=== PATIENT | male | born 1965 | race Caucasian/White ===

== ENCOUNTER 2019-08-18 15:34 | Outpatient (CLI) | payer SELFPAY | END 2019-08-18 15:35 | disposition EMS.NT | LOC: EMS 15:34 | PROVIDERS: ATTEND Surgery | DX: T14.90XA Injury, unspecified, initial encounter (principal); W13.2XXA Fall from, out of or through roof, initial encounter; Y93.H3 Activity, building and construction; Y92.61 Building [any] under construction as the place of occurrence of the external cause; Y99.0 Civilian activity done for income or pay; Z53.29 Procedure and treatment not carried out because of patient's decision for other reasons ==

== ENCOUNTER 2021-05-17 12:38 | Outpatient (CLI) | payer BC | END 2021-05-17 12:39 | disposition home or self-care (01) | LOC: LAB 12:38 | PROVIDERS: ATTEND Surgery | DX: Z01.812 Encounter for preprocedural laboratory examination (principal); Z12.11 Encounter for screening for malignant neoplasm of colon; F12.10 Cannabis abuse, uncomplicated; Z20.822 Contact with and (suspected) exposure to COVID-19 ==

== ENCOUNTER 2021-05-20 08:21 | Day surgery (SDC) | payer BC ==
[2021-05-20] MEDS ORDERED: LACTATED RINGERS 1,000 ML IV ONE ×2 (08:50→12:10)
--- NOTE | 2021-05-20 09:00 | ANESTHESIA ---
Pre-Anesthesia VS, & Labs - Diagnosis screening - Procedure colonoscopy Vital Signs: Temp Pulse Resp BP Pulse Ox 36.7 C 103 H 19 141/107 H 97 05/20/21 08:43 05/20/21 08:43 05/20/21 08:43 05/20/21 08:43 05/20/21 08:43 Height: 6 ft 2 in Weight (kg): 85 kg Body Mass Index: 24.0 BMI Classification: Healthy weight - NPO >8 hours - Lab Results Lab results reviewed: Yes Home Medications and Allergies Home Medications: Ambulatory Orders metFORMIN [Glucophage] 1 tab PO DAILY 05/17/21 metFORMIN [Glucophage] 1 tab PO DAILY 05/17/21 Allergies/Adverse Reactions: Allergies Allergy/AdvReac Type Severity Reaction Status Date / Time No Known Drug Allergies Allergy Verified 05/17/21 13:04 Anes History & Medical History - Anesthetic History Anesthesia Complications: reports: No previous complications Family history of Anesthesia Complications: Denies Family history of Malignant Hyperthermia: Denies - Medical History Cardiovascular: reports: None Pulmonary: reports: None Gastrointestinal: reports: None Urinary: reports: None Musculoskeletal: reports: None Endocrine/Autoimmune: reports: Type 2 diabetes Skin: reports: None - Surgical History Eyes Ears Nose Throat (EENT): reports: Detached retina repair Orthopedic: reports: Arthroscopic surgery, Other Exam General: Alert, Oriented x3, Cooperative, No acute distress Dental: WNL Mouth Openin Fingerbreadth Neck Mobility: Normal Plan Anesthesia Type: General, Total IV Consent for Procedure(s) Verified and Reviewed: Yes Code Status: Attempt Resuscitation ASA classification: 2-Mild systemic disease Is this case an emergency?: No
[2021-05-20] MEDS ORDERED: PROPOFOL 500 MG/50 ML 500 MG/50 ML VIAL ONE (10:30)
[2021-05-20] MEDS ORDERED: PROPOFOL 200 MG/20 ML VIAL IVP ONE ×2 (10:30→12:03)
[2021-05-20] MEDS ORDERED: MIDAZOLAM 2 MG/2 ML VIAL ONE (10:45)
--- NOTE | 2021-05-20 12:23 | ANESTHESIA POST OP EVALUATION ---
Anesthesia Post Eval - Post Anesthesia Eval Vitals: Last Vital Signs Temp 36.7 C 05/20/21 08:43 Pulse 102 H 05/20/21 12:10 Resp 19 05/20/21 12:10 BP 125/105 H 05/20/21 12:10 Pulse Ox 100 05/20/21 12:10 CV Function Including HR & BP: Stable Pain Control: Satisfactory Nausea & Vomiting: Negative Mental Status: Baseline Respiratory Status: Airway Patent Hydration Status: Satisfactory Anesthesia Complications: None
[2021-05-20 12:27] VITALS: BP 137/97
== END 2021-05-20 08:22 | disposition home or self-care (01) ==
LOC: SDS 08:21
PROVIDERS: ATTEND Surgery
PROC: 0DBK8ZZ Excision of Ascending Colon, Via Natural or Artificial Opening Endoscopic (ICD-10-PCS; principal; 2021-05-20 09:30)
DX: Z12.11 Encounter for screening for malignant neoplasm of colon (principal); D12.2 Benign neoplasm of ascending colon; K64.8 Other hemorrhoids; K57.30 Diverticulosis of large intestine without perforation or abscess without bleeding; K64.4 Residual hemorrhoidal skin tags; Z80.0 Family history of malignant neoplasm of digestive organs
CPT/HCPCS: 45380; J7120

== ENCOUNTER 2023-08-02 15:28 | Emergency (ER) | payer BC, OTHER ==
[2023-08-02 16:36] LABS: BASOPHILS % (AUTO) 0.3 %; EOSINOPHILS # (AUTO) 0.2 10^3/uL (0.0-0.7); EOSINOPHILS % (AUTO) 1.7 %; HCT - HEMATOCRIT 45.2 % (42.0-52.0); LYMPHOCYTES # (AUTO) 1.4 10^3/uL (1.5-3.5); LYMPHOCYTES % (AUTO) 15.1 %; MEAN CORPUSCULAR HEMOGLOBIN 30.2 pg (27.0-31.0); MEAN CORPUSCULAR HGB CONC 33.2 g/dL (32.0-36.0); MEAN CORPUSCULAR VOLUME 91.1 fL (80.0-94.0); MEAN PLATELET VOLUME 10.1 fL (7.4-11.4); MONOCYTES # (AUTO) 0.8 10^3/uL (0.0-1.0); MONOCYTES % (AUTO) 8.1 %; NEUTROPHILS # (AUTO) 7.1 10^3/uL (1.5-6.6); NEUTROPHILS % (AUTO) 74.6 %; PLT - PLATELET COUNT 259 10^3/uL (130-450); RED BLOOD COUNT 4.96 10^6/uL (4.70-6.10); RED CELL DISTRIBUTION WIDTH 12.6 % (12.0-15.0); WHITE BLOOD COUNT 9.5 x10^3/uL (4.8-10.8)
[2023-08-02] MEDS: DROPERIDOL 5 MG/2 ML VIAL IVP STA (16:37)
[2023-08-02] MEDS: diphenhydrAMINE INJ 50 MG/ML VIAL IVP STA (16:37)
--- NOTE | 2023-08-02 16:42 | ED Physician Documentation ---
History of Present Illness - Stated complaint Stated Complaint: L EAR PX/THROAT NUMB - Chief complaint Chief Complaint: Heent - History obtained from History obtained from: Patient, Family - History of Present Illness Timing: How many weeks ago (1) Pain level max: 8 Pain level now: 8 - Additonal information Additional information: 57-year-old male presents to the emergency department with several complaints. He states that about 1 week ago he had a right ear pain and developed a feeling of numbness and swelling to the right side of his tongue. He states that it gradually moved to the middle of the tongue over the past 1 week, now the right side feels normal but the left side feels swollen and numb. He states that the pain has moved from the right ear to the left ear. Occasionally down into the neck. He states that he also has a headache. He cannot describe where the headache is he says "in my brain". No fevers. No falls. No trauma. No rhinorrhea, cough, congestion. No abdominal pain, nausea, vomiting. No dental pain. No vision changes. He is blind in the left eye. No facial droop or focal neurological deficits. No numbness or tingling in the extremities. No neck or back pain. He states that there is pain with swallowing. He states that he is supposed to be on metformin at home but stopped taking this about a week ago. Review of Systems Constitutional: denies: Fever, Chills Ears: denies: Ear pain Cardiac: denies: Chest pain / pressure, Palpitations, Calf pain Respiratory: denies: Cough GI: denies: Vomiting, Diarrhea : denies: Dysuria, Frequency, Hesitancy Skin: denies: Rash Musculoskeletal: denies: Neck pain, Back pain Neurologic: reports: Headache (Gradual in onset, cannot specify where the pain is.). denies: Head injury, LOC PD PAST MEDICAL HISTORY - Past Medical History Past Medical History: Yes Cardiovascular: None Respiratory: None Neuro: None Endocrine/Autoimmune: Type 2 diabetes GI: None : None HEENT: Other Psych: None Musculoskeletal: None Derm: None - Past Surgical History Past Surgical History: Yes Ortho: Arthroscopic surgery, Other HEENT: Detached retina repair - Present Medications Home Medications: Ambulatory Orders Medication Instructions Recorded Confirmed metFORMIN [Glucophage] 500 mg PO DAILY 05/17/21 08/02/23 HYDROcod/ACETAM 5/325 [[place] 5/325] 1 - 2 ea PO Q6H PRN #14 tablet 08/02/23 - Allergies Allergies/Adverse Reactions: Allergies Allergy/AdvReac Type Severity Reaction Status Date / Time No Known Drug Allergies Allergy Verified 08/02/23 15:30 - Social History Does the pt smoke?: No Smoking Status: Former smoker Does the pt drink ETOH?: Yes Does the pt have substance abuse?: Yes Substance Use and Type: Marijuana - Immunizations Immunizations are current?: No Immunizations: Other immun not current PD ED PE NORMAL - Vitals Vital signs reviewed: Yes - General General: Alert and oriented X 3, No acute distress, Well developed/nourished - HEENT HEENT: Atraumatic, PERRL, EOMI, Ears normal, Moist mucous membranes, Pharynx b enign, Other (Normal intraoral exam. Normal tongue exam. Normal phonation. No trismus. Normal tonsils. 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, No motor deficit, No sensory deficit, Normal speech Eye Opening: Spontaneous Motor: Obeys Commands Verbal: Oriented GCS Score: 15 - Psych Psych: Normal mood, Normal affect Results - Vitals Vitals: Vital Signs - 24 hr 08/02/23 08/02/23 15:30 17:40 Temperature 36.4 C L 37.2 C Heart Rate 96 71 Respiratory 18 20 Rate Blood Pressure 155/104 H 149/105 H O2 Saturation 100 96 Oxygen O2 Source Room air - Labs Labs: Laboratory Tests 08/02/23 08/02/23 08/02/23 16:20 16:20 16:30 WBC 9.5 RBC 4.96 Hgb 15.0 Hct 45.2 MCV 91.1 MCH 30.2 MCHC 33.2 RDW 12.6 Plt Count 259 MPV 10.1 Neut # (Auto) 7.1 H Lymph # (Auto) 1.4 L [place] # (Auto) 0.8 Eos # (Auto) 0.2 Baso # (Auto) 0.0 Absolute Nucleated RBC 0.00 Nucleated RBC % 0.0 Sodium Potassium Chloride Carbon Dioxide Anion Gap BUN Creatinine Estimated GFR (MDRD) Glucose Calcium Total Bilirubin AST ALT Alkaline Phosphatase Total Protein Albumin Globulin Albumin/Globulin Ratio Nasal Adenovirus (PCR) NOT DETECTED Nasal B. parapertussis DNA (PCR) NOT DETECTED Nasal Coronavir 229E PCR NOT DETECTED Nasal Coronavir HKU1 PCR NOT DETECTED Nasal Coronavir NL63 PCR NOT DETECTED Nasal Coronavir OC43 PCR NOT DETECTED Nasal Enterovir/Rhinovir PCR NOT DETECTED Nasal Influenza B PCR NOT DETECTED Nasal Influenza A PCR NOT DETECTED Nasal Parainfluen 1 PCR NOT DETECTED Nasal Parainfluen 2 PCR NOT DETECTED Nasal Parainfluen 3 PCR NOT DETECTED Nasal Parainfluen 4 PCR NOT DETECTED Nasal RSV (PCR) NOT DETECTED Nasal B.pertussis DNA PCR NOT DETECTED Nasal C.pneumoniae (PCR) NOT DETECTED Nick Human Metapneumo PCR NOT DETECTED Nasal M.pneumoniae (PCR) NOT DETECTED Nasal SARS-CoV-2 (PCR) NOT DETECTED Group A Strep Rapid Negative 08/02/23 16:30 WBC RBC Hgb Hct MCV MCH MCHC RDW Plt Count MPV Neut # (Auto) Lymph # (Auto) [place] # (Auto) Eos # (Auto) Baso # (Auto) Absolute Nucleated RBC Nucleated RBC % Sodium 133 L Potassium 4.5 Chloride 100 L Carbon Dioxide 26 Anion Gap 7.0 BUN 12 Creatinine 0.7 Estimated GFR (MDRD) 117 Glucose 315 H Calcium 9.6 Total Bilirubin 0.5 AST 9 L ALT 15 Alkaline Phosphatase 61 Total Protein 7.3 Albumin 4.0 Globulin 3.3 Albumin/Globulin Ratio 1.2 Nasal Adenovirus (PCR) Nasal B. parapertussis DNA (PCR) Nasal Coronavir 229E PCR Nasal Coronavir HKU1 PCR Nasal Coronavir NL63 PCR Nasal Coronavir OC43 PCR Nasal Enterovir/Rhinovir PCR Nasal Influenza B PCR Nasal Influenza A PCR Nasal Parainfluen 1 PCR Nasal Parainfluen 2 PCR Nasal Parainfluen 3 PCR Nasal Parainfluen 4 PCR Nasal RSV (PCR) Nasal B.pertussis DNA PCR Nasal C.pneumoniae (PCR) Nick Human Metapneumo PCR Nasal M.pneumoniae (PCR) Nasal SARS-CoV-2 (PCR) Group A Strep Rapid - Rads (name of study) Head CT Relevant Findings:: Final report received, See rad report Soft tissue neck CT Relevant Findings:: Final report received, See rad report PD Medical Decision Making - ED course Complexity details: reviewed results, re-evaluated patient, considered differential, d/w patient, d/w family Reviewed Lab Results: Patient is hyperglycemic, but he recently stopped his metformin, recommend restarting this in [address] scan ED course: Unclear etiology of the patient's symptoms. No acute findings on head CT for his new onset recent headaches, no acute findings on CT soft tissue neck, no retropharyngeal or parapharyngeal abscesses. No oropharyngeal swelling visible on CT. Pain well-controlled here. Given a dose of dexamethasone, IV morphine, droperidol. Tolerating p.o. without difficulty. No indication of dental abscess. Normal phonation. No trismus. No indication for antibiotics. Normal white blood cell count. No fevers. We will trial on pain medication and see how he progresses over the next few days. Recommend close follow-up with his PCP. Patient counseled regarding signs and symptoms for which I believe and urgent re-evaluation would be necessary. Patient with good understanding of and agreement to plan and is comfortable going home at this time This document was made in part using voice recognition software. While efforts are made to proofread this document, sound alike and grammatical errors may occ ur. Departure - Departure Disposition: 01 Home, Self Care Clinical Impression: Throat pain Headache Qualifiers: Headache type: unspecified Headache chronicity pattern: acute headache Intractability: not intractable Qualified Code(s): R51.9 - Headache, unspecified Condition: Good Instructions: ED Cephalgia Unspecified Follow-Up: your,doctor in 3 days [Other] Prescriptions: HYDROcod/ACETAM 5/325 [[place] 5/325] 1 - 2 ea PO Q6H PRN #14 tablet PRN Reason: Pain Comments: The cause of your symptoms is unclear today. Your strep test is negative. Your respiratory viral panel is negative. Your head CT is negative. Your neck CT does not show any acute abnormalities but you do have a small thyroid nodule which should be followed up by your doctor. Your laboratory testing is normal as well other than your elevated blood sugar. Would recommend starting your metformin again in 48 hours. Your prescriptions were sent to [facility] in [place]. Please follow-up with your doctor for further care and return if you worsen. I am prescribing a short course of narcotic pain medication for you. These are potentially dangerous and addictive medications that should be used carefully. These medications may constipate you. Take an ggub-wqk-vqykoxt stool softener (docusate) twice daily with plenty of water while taking these medications. If you go 24 hours without a bowel movement, take [id number] miralax, per package instructions. Do not drink or drive while taking these medications. If you received narcotic or sedating medications while in the emergency department, do not drive for 24 hours. Store this medication in a safe, secure place and out of reach of children. It is a violation of federal law to give or sell this medication to another person or to use in a manner other than prescribed. The ED will not refill narcotic prescriptions, including prescriptions lost or stolen. To dispose of unwanted medications: 1. [facility] at [address] in [place] has a medication drop box. They accept prescription medications (in pill form) Thursday through Thursday 9:00 a.m. to 5:00 p.m. 2. The [facility] [employer] accepts prescription medications (in pill form only) for disposal year round. Call for more information. 3. Contact the [facility] for the next [facility] sponsored prescription drug collection event. , [phone], or [phone]; Forms: PCP List Discharge Date/Time: 08/02/23 18:18
[2023-08-02 16:48] LABS: ALBUMIN/GLOBULIN RATIO 1.2 (1.0-2.2); BILIRUBIN,TOTAL 0.5 mg/dL (0.2-1.0); CALCIUM 9.6 mg/dL (8.5-10.3); CREATININE 0.7 mg/dL (0.6-1.3); POTASSIUM 4.5 mmol/L (3.5-4.5); TOTAL PROTEIN 7.3 g/dL (6.4-8.9)
[2023-08-02 16:49] LABS: RAPID STREP SCREEN Negative (Negative)
[2023-08-02] MEDS ORDERED: iohexoL-300 100 ML VIAL ONE (16:54)
[2023-08-02] MEDS: iohexoL-300 100 ML VIAL IVP ONE (17:17)
[2023-08-02] MEDS: MORPHINE 2 MG/ML CARPUJECT IVP STA (17:22)
[2023-08-02 17:34] LABS: B. PARAPERTUSSIS- RESP PCR PAN NOT DETECTED; B. PERTUSSIS- RESP PCR PANEL NOT DETECTED; C. PNEUMONIAE- RESP PCR PANEL NOT DETECTED; CORONAVIRUS 229E-RESP PCR NOT DETECTED; CORONAVIRUS HKU1-RESP PCR NOT DETECTED; CORONAVIRUS NL63-RESP PCR NOT DETECTED; CORONAVIRUS OC43-RESP PCR NOT DETECTED; HUMAN METAPNEUMOVIRUS NOT DETECTED; INFLUENZA A- RESP PCR PANEL NOT DETECTED; INFLUENZA B - RESP PCR PANEL NOT DETECTED; M. PNEUMONIAE- RESP PCR PANEL NOT DETECTED; PARAINFLUENZA VIRUS 1 NOT DETECTED; PARAINFLUENZA VIRUS 2 NOT DETECTED; PARAINFLUENZA VIRUS 3 NOT DETECTED; PARAINFLUENZA VIRUS 4 NOT DETECTED; RHINOVIRUS/ENTEROVIRUS NOT DETECTED; RSV- RESP PCR PANEL NOT DETECTED; SARS-CoV-2 -RESP PCR PANEL NOT DETECTED
--- NOTE | 2023-08-02 17:38 | CT Report ---
PROCEDURE: Soft Tissue Neck W INDICATIONS: neck pain, throat swelling CONTRAST: 100ml omni 300 TECHNIQUE: After the administration of intravenous contrast, 3.0 mm axial sections acquired from the sella to th e aortic arch. Additional oblique axial 3.0 mm sections acquired through the pharynx. 3 mm thick co hair reformats were generated. For radiation dose reduction, the following was used: automated exp osure control, adjustment of mA and/or kV according to patient size. COMPARISON: None. FINDINGS: Image quality: Excellent. Lymph nodes: No enlarged lymph nodes seen throughout the neck. Vessels: Visualized vasculature appears patent. Neck spaces: The oropharynx, nasopharynx, and pharynx demonstrate no mucosal lesions. The glottis is closed limiting evaluation the vocal cords and false vocal cords. The puriform sinuses, epiglottis, vallecula, and tongue base all appear normal. Extramucosal spaces appear unremarkable. Glands: The parotid and submandibular glands appear normal. Right thyroid 1.7 cm nodule. Miscellaneous: Visualized brain and orbits appear normal. Lung apices appear clear. Superficial so ft tissues appear normal. Bones: No suspicious bony lesions. Visualized sinuses and mastoids appear unremarkable. IMPRESSION: No retropharyngeal abscess, prevertebral soft tissue edema, lymphadenopathy, or mass identified. Right thyroid nodule consider routine thyroid ultrasound. Reviewed by: Jani Beth MD on 08/02/2023 4:37 PM AKIVETH Approved by: Jani Beth MD on 08/02/2023 4:37 PM AKIVETH Station ID: [id number]
--- NOTE | 2023-08-02 17:40 | CT Report ---
PROCEDURE: Head WO INDICATIONS: headache TECHNIQUE: Noncontrast 4.5 mm thick angled axial sections acquired from the foramen magnum to the vertex. For r adiation dose reduction, the following was used: automated exposure control, adjustment of mA and/or kV according to patient size. COMPARISON: None. FINDINGS: Image quality: Excellent. CSF spaces: Basal cisterns are patent. No extra-axial fluid collections. Ventricles are normal in size and shape. Brain: No midline shift. No intracranial masses or hemorrhage. Simons-white matter interface is norm al. Skull and face: Calvarium and visualized facial bones are intact, without suspicious lesions. Sinuses: Visualized sinuses and mastoids are clear. IMPRESSION: No acute intracranial pathology. Reviewed by: Jani Beth MD on 08/02/2023 4:39 PM JEZ Approved by: Jani Beth MD on 08/02/2023 4:39 PM AKIVETH Station ID: [id number]
[2023-08-02 17:43] VITALS: BP 149/105; O2SAT 96
[2023-08-02] MEDS: HYDROcod/ACETAM 5/325 MG TABLET PO STA (18:08)
[2023-08-02] MEDS: DEXAMETHASONE 10 MG/ML VIAL PO STA (18:09)
[2023-08-02] MEDS: CHERRY SYRUP 10 ML UDC PO ONE (18:09)
== END 2023-08-02 18:18 | disposition home or self-care (01) ==
LOC: ED 15:28
DX: H92.02 Otalgia, left ear (principal); R07.0 Pain in throat; R51.9 Headache, unspecified; E11.9 Type 2 diabetes mellitus without complications; Z79.84 Long term (current) use of oral hypoglycemic drugs; Z87.891 Personal history of nicotine dependence; Z11.52 Encounter for screening for COVID-19
CPT/HCPCS: 36415; 70450; 70491; 80053; 85025; 87070; 87430; 87633; 96374; 96375; 99284; A9270; J1200; Q9967

== ENCOUNTER 2023-08-03 16:37 | Emergency (ER) | payer BC, OTHER ==
[2023-08-03] MEDS: PROPOFOL 200 MG/20 ML VIAL IVP STA (17:29)
--- NOTE | 2023-08-03 17:47 | ED Physician Documentation ---
History of Present Illness - Stated complaint Stated Complaint: ABCESS TONGUE - Chief complaint Chief Complaint: Heent - History obtained from History obtained from: Patient, Family - Additonal information Additional information: The patient comes to the emergency department for chief complaint of tongue abscess. He was seen here yesterday for tongue pain and CT scan with contrast was performed and initially read as negative. The patient was feeling worse today and ended up going to the walk-in clinic, where he saw Nurse practitioner Eduardo, who initiated a second look at the CT by radiology and the overread stated that the patient actually had an abscess. The patient was sent back to the emergency department. Dr. Sams of oral surgery recommended a needle aspiration of the abscess and stated he would follow the patient up. The patient denies any swelling or closing of his throat. He is able to swallow his secretions. No fevers or chills. He denies any drainage from the abscess. No other complaints at this time. PD PAST MEDICAL HISTORY - Past Medical History Cardiovascular: None Respiratory: None Neuro: None Endocrine/Autoimmune: Type 2 diabetes GI: None : None HEENT: Other Psych: None Musculoskeletal: None Derm: None - Past Surgical History Past Surgical History: Yes Ortho: Arthroscopic surgery, Other HEENT: Detached retina repair - Present Medications Home Medications: Ambulatory Orders Medication Instructions Recorded Confirmed metFORMIN [Glucophage] 500 mg PO DAILY 05/17/21 08/02/23 HYDROcod/ACETAM 5/325 [[place] 5/325] 1 - 2 ea PO Q6H PRN #14 tablet 08/02/23 - Allergies Allergies/Adverse Reactions: Allergies Allergy/AdvReac Type Severity Reaction Status Date / Time No Known Drug Allergies Allergy Verified 08/03/23 16:40 - Social History Does the pt smoke?: No Smoking Status: Never smoker Does the pt drink ETOH?: Yes Does the pt have substance abuse?: Yes - Immunizations Immunizations are current?: No Immunizations: Other immun not current PD ED PE NORMAL - Vitals Vital signs reviewed: Yes - General General: Alert and oriented X 3, No acute distress, Well developed/nourished, Other (Patient appears mildly uncomfortable otherwise no apparent distress.) - HEENT HEENT: Atraumatic, PERRL, EOMI, Moist mucous membranes, Other (Tenderness and firmness of Failure to distal tongue extending to within approximately a centimeter of the tip. Mild fluctuance. No drainage. Area is approximately 2 x 2 cm. No swelling of floor of mouth. No pharyngeal asymmetry or edema) - Cardiac Cardiac: RRR, No murmur - Respiratory Respiratory: Clear bilaterally - Abdomen Abdomen: Normal bowel sounds, Soft, Non tender, Non distended - Derm Derm: Warm and dry - Extremities Extremities: No deformity - Neuro Neuro: Alert and oriented X 3 - Psych Psych: Normal mood, Normal affect Results - Vitals Vitals: Vital Signs - 24 hr 08/03/23 08/03/23 16:40 16:42 Temperature 36.8 C Heart Rate 90 80 Respiratory 16 16 Rate Blood Pressure 150/98 H O2 Saturation 99 Oxygen O2 Source Room air Procedures - Abscess I&D (location) Other Preparation: Other (Confirmed with CT) Incision: Needle aspiration, Purulent drainage (Slightly over 1.5 cc.), Culture obtained Other: Pt tolerated well (Minimal bleeding immediately after needle aspiration, quickly stopped.), Other (Patient is already on antibiotics) - Procedural sedation Sedation prep: Informed consent, Time out completed, ASA 2 - mild disease (Diabetes) Sedation Medications: propofol (100mg initially, then another 50 mg for optimal sedation, for a total of 150mg administered.) Mallampati classification: I Patient status during sedation: Unresponsive, Vitals remained stable, Maintained airway, Recovered uneventfully Sedation recovery: Recovered uneventfully, Back to baseline Time in sedation (Minutes): 10 PD Medical Decision Making - ED course Complexity details: reviewed old records, reviewed results, re-evaluated patient, considered differential, d/w patient, d/w family ED course: The patient had an uneventful sedation and abscess cavity was very easily accessed with 18-gauge needle and purulent drainage aspirated as above. The patient awakened and was cheerful and conversant, reporting feeling much better than before the aspiration. The patient had received a dose of Rocephin in the clinic and the family did have the patient's Augmentin. I advised the patient to take a dose upon arriving home. I have advised him regarding post sedation precautions including that he should not drive or operate heavy equipment for at least 12 hours. He is advised to just get rest immediately upon arriving home. We have discussed the need for follow-up with Dr. Gillis to be sure that his abscess is completely resolving, we have discussed the importance of taking all doses of antibiotics, as directed. We discussed the usual indications for return. Departure - Departure Disposition: 01 Home, Self Care Clinical Impression: Abscess, tongue Condition: Stable Instructions: ED Abscess IandD Follow-Up: Neymar Gillis DDS [Provider Admit Priv/Credential] - Comments: Your CT scan from yesterday was looked at again and it turns out he actually did have an abscess in your tongue. We were able to drain most if not all of the pus out of there during your procedure today, based on the appearance and size of the abscess on CT. This should allow the antibiotics to work as desired and that should help clear up your tongue infection without further incident. Your tongue will most likely be sore partly because of the infection but also, partly because we poked you with a big needle in the top of your tongue today. However, this will subside. You may eat what ever food seems manageable to you. We have discussed using a tea bag that is as hot as you can stand and placing on your tongue to help encourage any drainage of any further pus that may want to accumulate. You may do this several times a day. Please follow-up with Dr. Gillis this week for reevaluation to make sure everything is resolving as it should. Please call his office first thing tomorrow morning to set up an appointment. Please take all of your antibiotics as directed until the course is complete, starting this evening. If you feel that your tongue is swelling up again or you are having any trouble swallowing or breathing, please return to the emergency department.
[2023-08-03 18:12] VITALS: O2SAT 95
[2023-08-03 18:49] VITALS: BP 146/97
--- NOTE | 2023-08-05 11:57 | ED Physician Documentation ---
ED Addendum - Addendum Addendum: 08/05/23 11:56 Culture from first visit reviewed, beta-hemolytic strep. He is on Augmentin from the urgent care which is appropriate. Culture from second visit pending.
== END 2023-08-03 18:42 | disposition home or self-care (01) ==
LOC: ED 16:37
DX: K14.0 Glossitis (principal); E11.9 Type 2 diabetes mellitus without complications; Z79.84 Long term (current) use of oral hypoglycemic drugs
CPT/HCPCS: 41599; 87070; 87075; 99152; 99283; 99285

== ENCOUNTER 2023-08-05 13:28 | Outpatient (CLI) | payer OTHER ==
[2023-08-05 13:41] LABS: BASOPHILS % (AUTO) 0.2 %; EOSINOPHILS # (AUTO) 0.2 10^3/uL (0.0-0.7); HGB - HEMOGLOBIN 13.9 g/dL (14.0-18.0); LYMPHOCYTES # (AUTO) 1.5 10^3/uL (1.5-3.5); LYMPHOCYTES % (AUTO) 16.5 %; MEAN CORPUSCULAR HEMOGLOBIN 30.1 pg (27.0-31.0); MEAN CORPUSCULAR HGB CONC 32.3 g/dL (32.0-36.0); MEAN CORPUSCULAR VOLUME 93.1 fL (80.0-94.0); MEAN PLATELET VOLUME 10.1 fL (7.4-11.4); MONOCYTES # (AUTO) 0.6 10^3/uL (0.0-1.0); MONOCYTES % (AUTO) 6.8 %; NEUTROPHILS # (AUTO) 6.7 10^3/uL (1.5-6.6); NEUTROPHILS % (AUTO) 74.3 %; PLT - PLATELET COUNT 273 10^3/uL (130-450); RED BLOOD COUNT 4.62 10^6/uL (4.70-6.10); RED CELL DISTRIBUTION WIDTH 12.6 % (12.0-15.0)
== END 2023-08-05 13:29 | disposition home or self-care (01) ==
LOC: LAB 13:28
PROVIDERS: ATTEND Dentist Oral and Maxillofacial Surgery
DX: K12.2 Cellulitis and abscess of mouth (principal)
CPT/HCPCS: 36415; 85025

== ENCOUNTER 2023-08-05 14:20 | Outpatient (CLI) | payer OTHER ==
[2023-08-05] MEDS ORDERED: iohexoL-300 100 ML VIAL ONE (14:24)
--- NOTE | 2023-08-05 16:23 | CT Report ---
PROCEDURE: Soft Tissue Neck W INDICATIONS: CELLULITIS AND ABCESS OF MOUTH CONTRAST: Omnipaque 300 100ml TECHNIQUE: After the administration of intravenous contrast, 3.0 mm axial sections acquired from the sella to th e aortic arch. Additional oblique axial 3.0 mm sections acquired through the pharynx. 3 mm thick co hair reformats were generated. For radiation dose reduction, the following was used: automated exp osure control, adjustment of mA and/or kV according to patient size. COMPARISON: CT head 08/02/2023, CT neck 08/03/2023 FINDINGS: Image quality: Excellent. Lymph nodes: Borderline prominent predominantly left-sided lymph nodes are stable. Vessels: Visualized vasculature appears patent. Neck spaces: The previously identified low-attenuation enhancing focus to the left of midline within the mid tongue has not significantly changed. The vocal cords, false vocal cords, pyriform sinuses, e piglottis, vallecula, and tongue base all appear normal. Extramucosal spaces appear unremarkable. Glands: The parotid and submandibular glands appear normal. Thyroid demonstrates unchanged right no dule. Miscellaneous: Visualized brain and orbits appear normal. Lung apices appear clear. Superficial so ft tissues appear normal. Bones: No suspicious bony lesions. Visualized sinuses and mastoids appear unremarkable. IMPRESSION: Previous left of midline focus within the tongue concerning for abscess has not appreciably changed. Portions are obscured secondary to metallic streak artifact. CLINICAL RECOMMENDATION STATEMENTS: In patients <35 years with an ITN detected on CT, MRI, or extrathyroidal ultrasound, the Committee re commends further evaluation with dedicated thyroid ultrasound if the nodule is "e1 cm and has no susp icious imaging features, and if the patient has normal life expectancy. In patients "e35 years with an ITN detected on CT, MRI, or extrathyroidal ultrasound, the Committee r ecommends further evaluation with dedicated thyroid ultrasound if the nodule is "e1.5 cm and has no s uspicious imaging features, and if the patient has normal life expectancy. (ACR, 2014) Reviewed by: Rosanne Villalta MD on 08/05/2023 4:21 PM PDT Approved by: Rosanne Villalta MD on 08/05/2023 4:21 PM PDT Station ID: [id number]
[2023-08-05] MEDS: iohexoL-300 100 ML VIAL IVP ONE (18:06)
== END 2023-08-05 14:21 | disposition home or self-care (01) ==
LOC: DI 14:20
PROVIDERS: ATTEND Dentist Oral and Maxillofacial Surgery
DX: K12.2 Cellulitis and abscess of mouth (principal)
CPT/HCPCS: 70491; Q9967